=== PATIENT | female | born 1990 | race Caucasian/White ===

== ENCOUNTER 2018-12-07 09:07 | Inpatient (IN) | payer OTHER, MEDICAID ==
[2018-12-07 10:19] LABS: ADD MAN DIFF? NO
[2018-12-07 10:22] LABS: WHITE BLOOD COUNT 13.2 10^3/ul (4.8-10.8)
[2018-12-07 10:22] LABS: BASOPHILS % 0.3 % (0.0-2.0); EOSINOPHILS # 0.1 10^3/ul (0.0-0.5); EOSINOPHILS % 0.5 % (0.0-7.0); HEMATOCRIT 29.2 % (37.0-47.0); HEMOGLOBIN 9.2 g/dl (12.0-16.0); LYMPHOCYTES # 2.9 10^3/ul (0.8-2.9); LYMPHOCYTES % 22.1 % (15.0-51.0); MEAN CORPUSCULAR HEMOGLOBIN 25.4 pg (29.0-33.0); MEAN CORPUSCULAR HGB CONC 31.5 g/dl (32.0-37.0); MEAN CORPUSCULAR VOLUME 80.7 fl (82.0-101.0); MEAN PLATELET VOLUME 10.2 fl (7.4-10.4); MONOCYTE # 0.5 10^3/ul (0.3-0.9); MONOCYTES % 3.6 % (0.0-11.0); NEUTROPHIL # 9.6 10^3/ul (1.6-7.5); NEUTROPHILS % 72.7 % (39.0-77.0); PLATELET COUNT 350 10^3/UL (140-415); RED BLOOD COUNT 3.62 10^6/ul (4.20-5.40); RED CELL DISTRIBUTION WIDTH 16.9 % (11.5-14.5)
[2018-12-07] MEDS ORDERED: METHYLERGONOVINE 0.2 MG INJ IM (10:30)
[2018-12-07] MEDS ORDERED: BUTORPHANOL 2 MG INJ IV (10:30)
[2018-12-07] MEDS ORDERED: MISOPROSTOL 200 MCG TAB PR ×2 (10:30→15:30)
[2018-12-07] MEDS ORDERED: OXYTOCIN 30 UNITS/LR 500 ML IV ×4 (10:30→15:30)
[2018-12-07] MEDS ORDERED: CARBOPROST 250 MCG INJ IM ×2 (10:30→15:30)
[2018-12-07 10:33] LABS: INR 0.84; PROTIME 11.6 Sec (11.9-14.9); PT RATIO 0.9
[2018-12-07 10:34] LABS: PARTIAL THROMBOPLASTIN TIME 27.9 Sec (23.0-35.0)
[2018-12-07] MEDS: LACTATED RINGER'S 1,000 ML IV ×2 (10:52→11:59)
[2018-12-07] MEDS ORDERED: FENTAnyl 2MCG/ML-ROPIV 0.2% 100 ML BAG EPI (12:00)
[2018-12-07] MEDS ORDERED: NALOXONE (0.4 MG/ML) INJ IV (12:00)
[2018-12-07] MEDS ORDERED: ONDANSETRON 4 MG INJ IV ×2 (12:00→15:30)
[2018-12-07] MEDS ORDERED: DIPHENHYDRAMINE 50 MG INJ IV ×2 (12:00→15:30)
[2018-12-07] MEDS ORDERED: SENNA/DOCUSATE NA (8.6MG/50MG) TAB PO (15:30)
[2018-12-07] MEDS ORDERED: ONDANSETRON 4 MG TAB PO (15:30)
[2018-12-07] MEDS ORDERED: DIPHENHYDRAMINE 25 MG CAP PO (15:30)
[2018-12-07] MEDS ORDERED: NA PHOSPHATE/BIPHOS 133 ML ENEMA PR (15:30)
[2018-12-07] MEDS ORDERED: MAGNESIUM HYDROXIDE 30ML CUP PO (15:30)
[2018-12-07] MEDS ORDERED: HYDROCODONE/APAP (5/325) TAB PO ×2 (15:30)
[2018-12-07] MEDS: LIDOCAINE 1% (MPF) 30 ML INJ INJ ×2 (15:57→16:00)
[2018-12-07 16:03] LABS: RAPID PLASMA REAGIN NONREACTIVE (NR)
[2018-12-07] MEDS: OXYTOCIN 30 UNITS/LR 500 ML IV (16:32)
[2018-12-07 17:46] LABS: HEPATITIS B SURFACE ANTIGEN NEGATIVE (NEGATIVE)
[2018-12-07] MEDS: IBUPROFEN 600 MG TAB PO ×2 (18:00→23:30)
[2018-12-07] MEDS: SENNA/DOCUSATE NA (8.6MG/50MG) TAB PO (21:25)
[2018-12-07] MEDS: LACTATED RINGER'S 1,000 ML IV* (21:26)
[2018-12-07] MEDS: LANOLIN HPA 1 PKT TOP (23:31)
[2018-12-07] MEDS: WITCH HAZEL/GLYCERIN PAD PR (23:31)
[2018-12-07] MEDS: DIBUCAINE 1% 30 GM OINT TOP (23:31)
[2018-12-07] MEDS: BENZOCAINE 20% 56 ML SPRAY TOP (23:31)
[2018-12-08] MEDS: IBUPROFEN 600 MG TAB PO ×3 (05:44→18:00)
[2018-12-08 08:56] LABS: ADD MAN DIFF? NO
[2018-12-08 08:59] LABS: BASOPHILS % 0.1 % (0.0-2.0); EOSINOPHILS # 0.1 10^3/ul (0.0-0.5); EOSINOPHILS % 0.4 % (0.0-7.0); HEMATOCRIT 23.7 % (37.0-47.0); HEMOGLOBIN 7.5 g/dl (12.0-16.0); LYMPHOCYTES # 2.9 10^3/ul (0.8-2.9); LYMPHOCYTES % 21.4 % (15.0-51.0); MEAN CORPUSCULAR HEMOGLOBIN 25.5 pg (29.0-33.0); MEAN CORPUSCULAR HGB CONC 31.6 g/dl (32.0-37.0); MEAN CORPUSCULAR VOLUME 80.6 fl (82.0-101.0); MEAN PLATELET VOLUME 10.7 fl (7.4-10.4); MONOCYTE # 0.5 10^3/ul (0.3-0.9); MONOCYTES % 3.7 % (0.0-11.0); NEUTROPHILS % 73.7 % (39.0-77.0); PLATELET COUNT 271 10^3/UL (140-415); RED BLOOD COUNT 2.94 10^6/ul (4.20-5.40); RED CELL DISTRIBUTION WIDTH 17.2 % (11.5-14.5)
[2018-12-08 08:59] LABS: WHITE BLOOD COUNT 13.6 10^3/ul (4.8-10.8)
[2018-12-08] MEDS: SENNA/DOCUSATE NA (8.6MG/50MG) TAB PO ×2 (11:54→20:52)
[2018-12-09] MEDS: IBUPROFEN 600 MG TAB PO ×2 (00:39→05:35)
[2018-12-09] MEDS: DIPHTH/TET/ACEL PERTUSS (ADULT) 0.5 ML VIAL IM* (08:07)
[2018-12-09] MEDS: VARICELLA VACCINE LIVE/PF 1,350 UNIT/0.5 ML ML SC* (08:08)
[2018-12-09] MEDS: MEASLES,MUMPS,RUBELLA VACCINE INJ SC* (08:08)
[2018-12-09] MEDS: SENNA/DOCUSATE NA (8.6MG/50MG) TAB PO (10:48)
== END 2018-12-09 12:36 | disposition home or self-care (01) | DRG 806 ==
LOC: OBT 09:07 → L-D 09:07 → OBT 09:14 → L-D 09:13 → PP1 18:30
PROVIDERS: Specialist
PROC: 10E0XZZ Delivery of Products of Conception, External Approach (ICD-10-PCS; principal; 2018-12-07)
PROC: 0UQGXZZ Repair Vagina, External Approach (ICD-10-PCS; 2018-12-07)
DX: O69.2XX0 Labor and delivery complicated by other cord entanglement, with compression, not applicable or unspecified (principal); O71.4 Obstetric high vaginal laceration alone; Z37.0 Single live birth; Z3A.39 39 weeks gestation of pregnancy
CPT/HCPCS: 76816; 85025; 85610; 85730; 86592; 86850; 86900; 86901; 87340; 90716; 99464